=== PATIENT | male | born 1985 | race Caucasian/White ===

== ENCOUNTER 2021-11-19 12:48 | Emergency (ER) | payer OTHER, SELFPAY ==
[2021-11-19 12:53] VITALS: BP 156/79; PULSE 84; TEMP 36
--- NOTE | 2021-11-19 12:57 | ED.DENTAL ---
HPI - Dental/Oral General Chief complaint: Dental/Oral Stated complaint: toothache Time Seen by Provider: 11/19/21 12:58 Source: patient Mode of arrival: ambulatory Limitations: no limitations History of Present Illness HPI Narrative: Gael Richardson is a 36 yo male with PMH of ocular migraines who [facility] with fractured right lower molar that started hurting in the last couple of days and is particularly uncomfortable in the cold Related Data Allergies Allergy/AdvReac Type Severity Reaction Status Date / Time No Known Allergies Allergy Unknown Verified 05/05/21 12:18 Review of Systems Review of Systems: CONSTITUTIONAL: Denies fever, chills, sweats. EYES: Denies visual changes, redness, discharge. ENT: Denies rhinorrhea, congestion, sore throat, otalgia. CARDIOVASCULAR: Denies chest pain, palpitations, edema. RESPIRATORY: Denies dyspnea, wheezing, cough GASTROINTESTINAL: Denies abdominal pain, nausea, vomiting, diarrhea. GENITOURINARY: Denies dysuria, hematuria, abnormal discharge SKIN: Denies rash or itching. NEUROLOGIC: Denies numbness, or focal weakness. PSYCHIATRIC: Denies anxiety or depression. Right lower wisdom tooth fracture PMFSH Family History Family History Mother Family history of migraine headaches Grandparent Diabetes mellitus Acute myocardial infarction Father Carcinoma of colon Social History Social History Smoking status: Former smoker Smoking end date: 10/18/06 Alcohol intake: current Comments At time of signature, I agree with nursing past medical, surgical, social and family history. There is no relevant family history pertinent to the presenting complaint. 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 HEAD: normocephalic, atraumatic. EYES: Sclera clear/white. Vision is grossly intact. EARS: External ears normal. Hearing grossly intact. NOSE: External nose normal without nasal discharge, nares without redness, no rhinorrhea : Some swelling of the gum around right lower last molar tooth 32. THROAT: Mucous membranes moist, NECK: Neck supple, non-tender CARDIOVASCULAR: Regular rate and rhythm without murmurs, gallops, or rubs. RESPIRATORY: Clear to auscultation. Breath sounds equal bilaterally. No wheezes, rales, or rhonchi. GASTROINTESTINAL: Abdomen soft, SKIN: warm, intact with no suspicious lesions or rash, good texture and turgor. NEURO: awake, alert, and oriented to person, place and time. There were no obvious focal neurologic abnormalities. Steady gait EXTREMITIES: Normal range of motion. BACK: Nontender without deformity Course Course Emergency Course: Here for chest pain Started on penicillin V and [id number] with dentist Level of Care: Express Care Visit Vital Signs Vital signs: Vital Signs Temperature 96.8 F L 11/19/21 12:53 Pulse Rate 84 11/19/21 12:53 Blood Pressure 156/79 H 11/19/21 12:53 Temperature 96.8 F L 11/19/21 12:53 Pulse Rate 84 11/19/21 12:53 Blood Pressure 156/79 H 11/19/21 12:53 MDM - Dental/Oral Differential Diagnosis Differential diagnosis: Likely dental caries, toothache, fracture of tooth and other Critical Care Time Critical Care Time Critical Care Time: No Discharge Plan Discharge Clinical Impression: Fracture of tooth Qualifiers: Encounter type: initial encounter Fracture type: closed Qualified Code(s): S02.5XXA - Fracture of tooth (traumatic), initial encounter for closed fracture Patient Disposition: Home, Self-Care Condition: Stable Instructions: Toothache (ED) Additional Instructions: Take Naprosyn with food Complete antibiotics and set up appointment with dentist Continue to brush teeth and wash mouth ou
== END 2021-11-19 13:13 | disposition home or self-care (01) ==
PROVIDERS: Emergency Provider Nurse Practitioner
DX: S02.5XXA Fracture of tooth (traumatic), initial encounter for closed fracture (principal); X58.XXXA Exposure to other specified factors, initial encounter; Z87.891 Personal history of nicotine dependence
CPT/HCPCS: 99213; G0463